=== PATIENT | male | born 1995 | race Caucasian/White ===

== ENCOUNTER 2017-11-15 00:06 | Emergency (ER) | payer OTHER ==
[2017-11-15 00:13] VITALS: RESP 16
--- NOTE | 2017-11-15 00:49 | EDPHY ---
H & P Stated Complaint: +etoh - pt fell hitting face, lac on nose Time Seen by Provider: 11/15/17 00:37 HPI/ROS: Chief Complaint: Fall, head injury HPI: 21-year-old intoxicated male had a mechanical fall onto his face. Unclear if there was a loss of consciousness. Patient does not recall events. Has had multiple alcoholic beverages to drink. Did sustain a laceration on the bridge of his nose. States he is up-to-date in his tetanus. Denies a head neck pain. No numbness or weakness. ROS: 10 point Review of Systems is negative except as noted in the HPI. PMH: Denies Social History: No smoking, occasional alcohol, no recreational drug use Family History: non-contributory Physical Exam: Gen: Awake, Alert, Airway Intact, smells of alcohol, speech is slurred HEENT: Head: Atraumatic Eyes: PERRLA, EOMI Nose: No epistaxis Mouth: Normal dentition, Airway patent Face: No deformity, he has a 1.5 cm stellate laceration on the bridge of his nose. No bony tenderness step-offs or crepitus. Neck: non-tender, no stepoff, Full ROM without pain Chest: non-tender, lungs CTA Heart: normal heart tones Abd: soft, non-tender, atraumatic Pelvis: non-tender, stable to AP and Lateral compression Back: atraumatic, no midline tenderness Ext: atramatic, full ROM Skin: no rash Neuro: CN II-XII intact, Strength 5/5 in all extremities, sensation intact in all extremities - Personal History Current Tetanus Diphtheria and Acellular Pertussis (TDAP): Yes - Medical/Surgical History Hx Asthma: No Hx Chronic Respiratory Disease: No Hx Diabetes: No Hx Cardiac Disease: No Hx Renal Disease: No Hx Cirrhosis: No Hx Alcoholism: No Hx HIV/AIDS: No Hx Splenectomy or Spleen Trauma: No Other PMH: none - Social History Smoking Status: Never smoked Constitutional: Initial Vital Signs Temperature (C) 36.8 C 11/15/17 00:10 Heart Rate 104 H 11/15/17 00:10 Respiratory Rate 16 11/15/17 00:10 Blood Pressure 131/89 H 11/15/17 00:10 O2 Sat (%) 96 11/15/17 00:10 O2 Delivery Mode Room Air Allergies/Adverse Reactions: No Known Allergies Allergy (Unverified 11/15/17 00:13) Home Medications: Medication Instructions Recorded NK [No Known Home Meds] 11/15/17 Medical Decision Making - Diagnostics Imaging Results: CT scan of the head is negative. Imaging: Discussed imaging studies w/ machine cementer and folder Radiologist Procedures: Procedure: Laceration repair. Verbal consent was obtained from the patient. The 1.5 cm laceration on the bridge of the nose was anesthetized in the usual fashion. The wound was irrigated, draped and explored to its base with a gloved finger. There were no deep structures involved. No tendon injury was identified. The wound was repaired with 5, 6-0 Ethilon simple interrupted sutures. The wound repair was uncomplicated. The procedure was performed by myself. ED Course/Re-evaluation: 21-year-old intoxicated male with head injury. Uncertain loss of consciousness. Patient is clinically intoxicated. Will obtain CT scan to rule out intracranial injury. Lacerations been repaired. CT scan of the head is negative. Patient is going home with his sober friends who will be looking after him overnight. Departure - Departure Disposition: Home, Routine, Self-Care Clinical Impression: Alcohol intoxication, Laceration of face Condition: Good Instructions: Laceration (ED), Care For Your Stitches (ED), Alcohol Intoxication (ED) Additional Instructions: Sutures need to be removed in 5 days. You can return to the emergency department or follow up at [facility] to have this done. Return to the emergency department for increasing redness, fever, discharge from the wound, worsening headache, nausea or vomiting, or any other concerns. Referrals: [facility] ,. [Clinic] - As per Instructions
[2017-11-15 01:29] VITALS: BP 105/54; PULSE 82; TEMP 97.9; O2SAT 98
== END 2017-11-15 01:29 | disposition home or self-care (01) ==
PROC: 09QKXZZ Repair Nasal Mucosa and Soft Tissue, External Approach (ICD-10-PCS; principal; 2017-11-15)
DX: S01.21XA Laceration without foreign body of nose, initial encounter (principal); F10.129 Alcohol abuse with intoxication, unspecified; W18.39XA Other fall on same level, initial encounter